=== PATIENT | female | born 1980 | race Caucasian/White ===

== ENCOUNTER 2022-03-05 18:09 | Emergency (ER) | payer OTHER ==
[~2022-03-05] VITALS: Ht 165.1 cm; Wt 108.9 kg
[2022-03-05 19:02] VITALS: BP 119/83
== END 2022-03-05 19:02 | disposition home or self-care (01) ==
LOC: EDH 18:09
DX: K62.89 Other specified diseases of anus and rectum (principal)
CPT/HCPCS: 99281